=== PATIENT | male | born 1970 | race Caucasian/White ===

== ENCOUNTER 2016-05-05 20:02 | Inpatient (IN) | payer OTHER ==
--- NOTE | ~2016-05-05 | PA ---
Unit #: [id number] #: [id number] Patient: NETTE BARRETO [id number] [facility] [address] [place] [address] [id number] MR#: [id number] NAME: NETTE BARRETO ROOM: [facility] Age: 46 Sex: M Admission Date: 05/05/2016 : 1970 Date of Assessment: 05/06/2016 Attending Physician: Pete Boateng M.D. Admitting Physician: Pete Boateng M.D. Primary Care Physician: Generic Doctor Not In System PSYCHIATRIC ASSESSMENT IDENTIFYING INFORMATION The patient is a 46-year-old white male admitted for alcohol detox. CHIEF COMPLAINT None given. INFORMANT Patient, reliability is good. HISTORY OF PRESENT ILLNESS The patient is a 46-year-old single white male admitted to the [address] [place] [address] for alcohol detox. The patient has been in chemical dependence treatment in the past per his report on 2 separate occasions but has never been able to maintain sobriety. Attempts to detox on his on have led to seizures per the patient's report. The patient reports that he is drinking about a fifth of vodka on a daily basis. He denies use of other psychoactive substances. 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 He denies current suicidal or homicidal ideation or psychotic symptoms. PAST PSYCHIATRIC HISTORY As above. PAST MEDICAL HISTORY The patient suffers from environmental allergies and hypertension. He apparently has had a nephrectomy, but his renal functions are within normal limits according to blood work from [facility]. MEDICATIONS (1) __ Claritin, metoprolol, losartan. ALLERGIES None. FAMILY HISTORY Noncontributory. SOCIAL HISTORY The patient lives with his parents. 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 He reports alcohol as noted previously and is a smoker. Unit #: [id number] #: [id number] Patient: NETTE BARRETO MENTAL STATUS EXAMINATION Examination at this time reveals the patient to be a slightly obese white female appearing stated age. He is in no apparent physical distress at the time of examination. He is awake, alert, and oriented in all spheres. His mood is euthymic, his affect congruent. Speech is generally well coherent. There are no gross deficits in memory or cognition noted. Intelligence is judged to be in the average range based on fund of knowledge. The patient is cooperative throughout the interview. He is currently denying suicidal or homicidal ideation or psychotic features. Judgment and insight appear to be intact. ASSETS AND LIABILITIES The patient's assets: Motivation for change. Liabilities: Lack of resources. DIAGNOSTIC IMPRESSION 1. Alcohol use disorder. 2. Hypertension. 3. Environmental allergies. 4. History of nephrectomy. TREATMENT PLAN The patient remains hospitalized for safety and stabilization. We will continue previously prescribed home medications and a routine detoxification protocol for alcohol has been initiated. The patient will begin acamprosate 666 mg 3 times daily to address alcohol craving. ESTIMATED LENGTH OF STAY 3 to 5 days. The followup will take place through the auspices of community mental health resources in the [facility]. Dictated by... Pete Boateng M.D. Isela TD: 05/06/2016 13:28 JOB #: [id number] PSYCHIATRIC ASSESSMENT X Pete Boateng MD X PSYCHIATRIC ASSESSMENT
--- NOTE | ~2016-05-05 | PN ---
Unit #: [id number] #: [id number] Patient: NETTE BARRETO [id number] [facility] [address] [place] [address] [id number] MR#: [id number] NAME: NETTE BARRETO ROOM: [facility] Age: 46 Sex: M Admission Date: 05/05/2016 : 1970 Attending Physician: Pete Boateng M.D. Admitting Physician: Pete Boateng M.D. Primary Care Physician: Generic Doctor Not In System [facility] PROGRESS NOTES DATE 05/07/2016 DISCUSSION Staff reports that they are concerned that the patient may be teetering on the brink of delirium tremens. He has not slept at all since his admission to the hospital. I will add Neurontin 900 mg at h.s. and we are watching (1)___ for any development of symptoms of delirium. Dictated by... Pete Boateng M.D. CB/maria ines TD: 05/07/2016 21:16 JOB #: [id number] [facility] PROGRESS NOTES X Pete Boateng MD PROGRESS NOTE
--- NOTE | ~2016-05-05 | PN ---
Unit #: [id number] #: [id number] Patient: NETTE BARRETO [id number] [facility] [address] [place] [address] [id number] I MR#: [id number] NAME: NETTE BARRETO ROOM: [facility] Age: 46 Sex: M Admission Date: 05/05/2016 : 1970 Attending Physician: Pete Boateng M.D. Admitting Physician: Pete Boateng M.D. Primary Care Physician: Generic Doctor Not In System [facility] PROGRESS NOTES DATE 05/08/2016 DISCUSSION The patient seems brighter today. We continue current treatment. Should the patient sustain progress discharge could likely take place as early as tomorrow. Dictated by... Pete Boateng M.D. CB/maria ines TD: 05/08/2016 18:53 JOB #: [id number] [facility] PROGRESS NOTES Page 1 of 1 X Pete Boateng MD X PROGRESS NOTE
--- NOTE | ~2016-05-05 | CO ---
Unit #: [id number] #: [id number] Patient: NETTE BARRETO [id number] [facility] [address] [place] [address] [id number] MR#: [id number] NAME: NETTE BARRETO ROOM: [facility] Age: 46 Sex: M Admission Date: 05/05/2016 : 1970 Attending Physician: Pete Boateng M.D. Primary Care Physician: Generic Doctor Not In System CONSULTATION REPORT REASON FOR CONSULT Hypertension. SUBJECTIVE "I've had high blood pressure for quite a few years and I have also been drinking for several years. My blood pressure is high now I think because I'm not drinking." OBJECTIVE Vital signs on admit, blood pressure was 196/123, currently today is 159/96, heart rate 100, respirations 20. Patient currently on losartan 100 mg daily and metoprolol ER 25 mg daily. ASSESSMENT Hypertension exacerbated by alcohol use, alcohol withdrawal and possibly right nephrectomy due to renal cell carcinoma. PLAN Continue losartan 100 mg daily. Increase metoprolol succinate to 50 mg daily. Blood pressure and heart rate readings every shift. Dictated by... Velasquez Vasquez/konstantin TD: 05/06/2016 20:44 JOB #: [id number] CONSULTATION REPORT X Jessika Joe APR X CONSULTATION REPORT
--- NOTE | ~2016-05-05 | DS ---
Unit #: [id number] #: [id number] Patient: NETTE BARRETO [id number] [facility] [address] [place] [address] [id number] MR#: [id number] NAME: NETTE BARRETO ROOM: [facility] Age: 46 Sex: M Admission Date: 05/05/2016 : 1970 Discharge Date: 05/09/2016 Attending Physician: Pete Boateng M.D. Primary Care Physician: Generic Doctor Not In System DISCHARGE SUMMARY REASON FOR ADMISSION The patient is a 46-year-old single white male, admitted to the [address] [place] [address] unit for alcohol detox. HOSPITAL COURSE The patient was admitted to the [address] [place] [address] unit and placed on routine detoxification protocol for alcohol. Given his long history of treatments, it was felt that pharmacotherapy intervention for his alcohol craving was warranted and he was begun on Campral 333 mg two tablets t.i.d. to address alcohol craving. Other home medications were continued including Toprol-XL, Flonase, Cozaar, Claritin, and Flonase. The patient complained of poor sleep and was begun on Neurontin 900 mg at bedtime p.r.n. insomnia. On the first day of admission, it appears though that the patient was close to entering DTs, unfortunately this did not occur and his detox was otherwise an uneventful one. By 05/10/2016, discharge was planned to take place with the patient returning for psychiatric followup in his hometown of [place], [place]. FINAL DIAGNOSES Alcohol use disorder, environmental allergies, hypertension. DISPOSITION ON DISCHARGE The patient is discharged on the following medications; Flonase daily for environmental allergies, Claritin 10 mg once daily for environmental allergies, Toprol-XL 50 mg once daily for hypertension, Neurontin 900 mg at bedtime for insomnia, Campral 666 mg t.i.d. for alcohol craving. DISCHARGE INSTRUCTIONS No dietary or physical restrictions were placed on the patient at the time of discharge. FOLLOWUP Followup will take place through the auspices of community mental health resources in the [place], [place] area. PROGNOSIS The patient's prognosis is considered fair. Dictated by... Pete Boateng M.D. CB/modl Unit #: [id number] #: [id number] Patient: NETTE BARRETO TD: 05/10/2016 01:42 JOB #: [id number] DISCHARGE SUMMARY Page 1 of 1 X Pete Boateng MD DISCHARGE SUMMARY
--- NOTE | ~2016-05-05 | HP ---
Unit #: [id number] #: [id number] Patient: NETTE BARRETO [id number] [facility] [address] [place] [address] [id number] MR#: [id number] NAME: NETTE BARRETO ROOM: [facility] Age: 46 Sex: M Admission Date: 05/05/2016 : 1970 Attending Physician: Pete Boateng M.D. Admitting Physician: Pete Boateng M.D. Primary Care Physician: Generic Doctor Not In System HISTORY AND PHYSICAL HISTORY OF PRESENT ILLNESS The patient is a 46-year-old male who states he is here for alcohol detox. He drinks approximately 1 pint of 100 proof vodka per day and 1/3 and 1/2 pint of 80 proof vodka per day. PAST MEDICAL HISTORY Significant for hypertension. PAST SURGICAL HISTORY 1. Significant for bilateral total knee replacements. 2. Appendectomy. 3. Right renal cell carcinoma with a nephrectomy. ALLERGIES None. SOCIAL HISTORY Positive for alcohol. FAMILY HISTORY Noncontributory. REVIEW OF SYSTEMS CONSTITUTIONAL: No fever or chills. HEENT: Denies any sore throat, ear pain or runny nose. CARDIOVASCULAR: Denies chest pain, irregular heart rhythm or palpitations. CHEST: Denies shortness of breath or cough. No hemoptysis. GASTROINTESTINAL: Denies nausea, vomiting, diarrhea or chronic constipation. ENDOCRINE: Denies history of increased thirst or urination. No recent significant weight loss or gain. GENITOURINARY: Denies dysuria, frequency, or hematuria. SKIN: Denies any rashes. HEMATOLOGIC: Denies history of increased bleeding or bruising. MUSCULOSKELETAL: Denies any hot, swollen joints. No generalized muscle pain. NEUROLOGIC: Denies problems with vision or speech. No frequent, severe headaches. No numbness, tingling or weakness in any extremities. Denies loss of bladder or bowel control. CURRENT MEDICATIONS 1. Flonase nasal spray, one spray daily. 2. Claritin 10 mg p.o. daily. Unit #: [id number] #: [id number] Patient: NETTE BARRETO 3. Metoprolol ER 25 mg p.o. daily. 4. Losartan 100 mg p.o. daily. PHYSICAL EXAMINATION GENERAL: Alert, oriented, in no acute distress. VITAL SIGNS: Blood pressure 196/123, heart rate 100, respirations 20. HEIGHT: 5 feet 11. WEIGHT: 218 pounds. SKIN: Warm and dry without rash or lesion. Tattoos bilateral upper arms. Scar to midline abdomen. Tattoo to the right lower extremity. Tattoo to the left lumbar area. HEENT: Normocephalic. TMs not viewed. Oral and nasal passages clear. Conjunctivae clear. PERRLA. EOMs intact. NECK: Supple without lymphadenopathy or thyromegaly. HEART: Regular rate and rhythm without murmur. LUNGS: Clear. ABDOMEN: Soft, nontender, without masses or hepatosplenomegaly. : Not done. EXTREMITIES: No evidence of cyanosis, clubbing or edema. Moves all without focal deficit. NEUROLOGICAL: Grossly within normal limits. Cranial Nerves: II: Visual gaona are intact. III, IV AND : Extraocular movements are intact. Pupils are equal, round and reactive to light. V: Facial sensation is grossly normal. VII: Facial movements and expression are normal. VIII: Auditory acuity grossly intact. IX, X: Uvula is midline. Phonation is normal. XI: Patient shrugs shoulders and turns head normally. XII: Tongue protrudes in the midline. Sensory and Motor Function: Sensory and motor sensation is grossly normal. Motor: moves all extremities well. Coordination: Gait is normal. Deep Tendon Reflexes: Intact. IMPRESSION Psychiatric admission. RECOMMENDATIONS PSYCHIATRIC: Per psychiatrist. MEDICAL: No contraindications to participate in facility's activities. MEDICAL PROGNOSIS Good. Dictated by... Velasquez Vasquez/konstantin TD: 05/06/2016 20:21 JOB #: [id number] Unit #: [id number] #: [id number] Patient: NETTE BARRETO HISTORY AND PHYSICAL Page 1 of 1 X Jessika Joe APR X HISTORY AND PHYSICAL
[2016-05-06 14:07] LABS: THYROID STIMULATING HORMONE 4.25 uIU/ml (0.34-5.60)
[2016-05-06 14:14] LABS: FREE THYROXIN (T4) 0.81 ng/dL (0.58-1.64)
[2016-05-06 14:27] LABS: URINE APPEARANCE CLEAR; URINE BILIRUBIN NEG (NEG); URINE BLOOD NEG (NEG); URINE COLOR YELLOW; URINE GLUCOSE NEG (NEG); URINE KETONE NEG (NEG); URINE LEUKOCYTE ESTERASE NEG (NEG); URINE NITRATE NEG (NEG); URINE PROTEIN NEG (NEG); URINE SPECIFIC GRAVITY 1.023 (1.003-1.035); URINE UROBILINOGEN 0.2 MG/DL (NEG)
== END 2016-05-09 16:30 | disposition home or self-care (01) | DRG 897 ==
LOC: P2S 20:02
PROVIDERS: Specialist
PROC: HZ2ZZZZ Detoxification Services for Substance Abuse Treatment (ICD-10-PCS; principal; 2016-05-05)
DX: F10.20 Alcohol dependence, uncomplicated (principal); F10.239 Alcohol dependence with withdrawal, unspecified; I10 Essential (primary) hypertension; Z90.5 Acquired absence of kidney; Z85.528 Personal history of other malignant neoplasm of kidney
CPT/HCPCS: 81003; 84439; 84443; 86592